=== PATIENT | male | born 1950 | race Caucasian/White ===

== ENCOUNTER → 2019-03-15 | Outpatient (CLI) | payer MEDICARE ==
[~2019-03-15] MED LIST: CARV25TA12 PO; LEVO50TA5 PO; LEVO75TA5 PO; POTA20TA89 PO; SACU1TAB PO; WARF-36 PO
[2019-03-15 15:26] LABS: INTERNATIONAL NORMALIZED RATIO 2.44 (0.93-1.1); PROTHROMBIN TIME 24.8 Seconds (9.6-11.5)
== END | disposition home or self-care (01) ==
LOC: CFH 13:05
PROVIDERS: ATTEND Internal Medicine Cardiovascular Disease
DX: I34.0 Nonrheumatic mitral (valve) insufficiency (principal); E03.9 Hypothyroidism, unspecified; E04.1 Nontoxic single thyroid nodule; I10 Essential (primary) hypertension; I42.0 Dilated cardiomyopathy; F32.9 Major depressive disorder, single episode, unspecified; F17.210 Nicotine dependence, cigarettes, uncomplicated
CPT/HCPCS: 36415; 85610

== ENCOUNTER → 2019-04-26 | Outpatient (CLI) | payer MEDICARE ==
[2019-04-26 16:34] LABS: INTERNATIONAL NORMALIZED RATIO 2.25 (0.93-1.1); PROTHROMBIN TIME 22.9 Seconds (9.6-11.5)
== END | disposition home or self-care (01) ==
LOC: CFH 13:16
PROVIDERS: ATTEND Internal Medicine Cardiovascular Disease
DX: I10 Essential (primary) hypertension (principal); E03.9 Hypothyroidism, unspecified; E04.1 Nontoxic single thyroid nodule; I34.0 Nonrheumatic mitral (valve) insufficiency; I42.0 Dilated cardiomyopathy; I42.2 Other hypertrophic cardiomyopathy; I42.8 Other cardiomyopathies; I42.9 Cardiomyopathy, unspecified; F17.210 Nicotine dependence, cigarettes, uncomplicated; F32.9 Major depressive disorder, single episode, unspecified
CPT/HCPCS: 36415; 85610

== ENCOUNTER 2019-08-12 14:16 | Emergency (ER) | payer MEDICARE ==
[~2019-08-12] VITALS: Ht 195.6 cm; Wt 87.1 kg
--- NOTE | 2019-08-12 15:39 | NUR ---
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
--- NOTE | 2019-08-12 16:48 | NUR ---
Vijaya haro in ED - 08/12/19 at 1649 by CALI PT CAME IN CO OF "MY OSTOMY HAS NOT HAD ANY POOP COME OUT OF IT IN 3-4 DAYS AND MY ABD IS VERY PAINFUL" PT HAS NO BAG ON HIS OSTOMY.
--- NOTE | 2019-08-12 16:49 | NUR ---
PT RESTING IN [facility]. UNABLE TO PALPATE OR LOCATE PULSES USING THE DOLLPER. US ORDERED
[2019-08-12 16:59] LABS: HCT (SEDRATE) 44.8 % (39.2-51.8)
[2019-08-12 17:00] LABS: ANION GAP 3 mmol/L (5-15); C-REACTIVE PROTEIN, QUANT 0.57 mg/dL (0.02-0.49); CALCIUM 8.8 mg/dL (8.5-10.1); CHLORIDE 108 mmol/L (98-107); CREATININE 0.81 mg/dL (0.7-1.3)
[2019-08-12 17:01] LABS: MEAN CORPUSCULAR HEMOGLOBIN 30.4 pg (27.5-34.5); MEAN CORPUSCULAR VOLUME 92.1 fL (81-97); MEAN PLATELET VOLUME 8.2 fL (7.4-10.4); PLATELET COUNT 173 x10^3/uL (130-400); RED BLOOD COUNT 4.94 x10^6/uL (4.38-5.82)
--- NOTE | 2019-08-12 17:34 | NUR ---
US IN WITH PT
[2019-08-12 17:35] LABS: MD YES
[2019-08-12 17:37] LABS: BASOS#(MANUAL) 0.14 x10^3/uL (0-0.1); BASOS% (MANUAL) 2 % (0-1); EOS#(MANUAL) 2.17 x10^3/uL (0.0-0.4); EOS% (MANUAL) 31 % (1-7); LYMPH#(MANUAL) 1.05 x10^3/uL (1-3.4); LYMPHS% (MANUAL) 15 % (22-44); MONOS#(MANUAL) 0.07 x10^3/uL (0.3-2.7); MONOS% (MANUAL) 1 % (2-9); REACTIVE LYMPHS # (MANUAL) 0.07 x10^3/uL (0-0); REACTIVE LYMPHS % (MANUAL) 1 % (0-0); SEGS% (MANUAL) 50 % (42-75)
[2019-08-12 17:38] LABS: <PLATELET ESTIMATE> ADEQUATE; <PLT MORPHOLOGY> NORMAL PLT MORPH; <RBC MORPHOLOGY> NORMAL
[2019-08-12 18:55] VITALS: BP 122/81
== END 2019-08-12 18:57 | disposition home or self-care (01) ==
LOC: ED 16:42
DX: M25.572 Pain in left ankle and joints of left foot (principal); I50.9 Heart failure, unspecified; I48.91 Unspecified atrial fibrillation
CPT/HCPCS: 36415; 80048; 84550; 85025; 85651; 86140; 93926; 99285

== ENCOUNTER 2019-09-03 11:52 | Emergency (ER) | payer MEDICARE ==
[~2019-09-03] VITALS: Ht 195.6 cm; Wt 86.5 kg
--- NOTE | 2019-09-03 12:14 | NUR ---
PT PRESENTED TO ED D/T BILATERAL LE PAIN, SWELLING, REDNESS X 6 WKS. PT STATES CANNOT STAND "THE PAIN" ANYMORE.
[2019-09-03] MEDS ORDERED: FURO-93 PO (12:18)
[2019-09-03] MEDS ORDERED: SACU1TAB PO (12:18)
[2019-09-03] MEDS ORDERED: LEVO25TA4 PO (12:19)
[2019-09-03] MEDS ORDERED: POTA20TA89 PO (12:19)
[2019-09-03] MEDS ORDERED: [UNRECOGNIZED DRUG - OTHER] (12:19)
[2019-09-03 12:54] LABS: MEAN CORPUSCULAR HEMOGLOBIN 30.7 pg (27.5-34.5); MEAN CORPUSCULAR HGB CONC 33.4 g/dL (33.2-36.2); MEAN CORPUSCULAR VOLUME 91.8 fL (81-97); PLATELET COUNT 198 x10^3/uL (130-400); RED CELL DISTRIBUTION WIDTH 14.7 % (9.4-14.8)
--- NOTE | 2019-09-03 13:05 | NUR ---
PT AMBULATED TO RESTROOM WITH A STEADY GAIT.
[2019-09-03 13:08] LABS: ALBUMIN 3.5 g/dL (3.4-5.0); ANION GAP 6 mmol/L (5-15); CALCIUM 8.4 mg/dL (8.5-10.1); CHLORIDE 106 mmol/L (98-107); CREATININE 0.87 mg/dL (0.7-1.3)
[2019-09-03 13:15] LABS: BASOPHILS # (AUTO) 0.03 x10^3/uL (0-0.1); BASOPHILS % (AUTO) 0 % (0-1); EOSINOPHILS # (AUTO) 2.29 x10^3/uL (0-0.4); EOSINOPHILS % (AUTO) 31 % (1-7); LYMPHOCYTES # (AUTO) 0.94 x10^3/uL (1-3.4); LYMPHOCYTES % (AUTO) 13 % (22-44); MD SCAN; MONOCYTES # (AUTO) 0.44 x10^3/uL (0.2-0.8); MONOCYTES % (AUTO) 6 % (2-9); NEUTROPHILS # (AUTO) 3.73 x10^3/uL (1.8-6.8); NEUTROPHILS % (AUTO) 50 % (42-75)
--- NOTE | 2019-09-03 13:29 | NUR ---
US AT BEDSIDE.
--- NOTE | 2019-09-03 13:54 | NUR ---
PT RESTING ON [facility]ATH[facility]. REPORT TO JC ARRIETA TO ASSUME PRIMARY CARE PT.
--- NOTE | 2019-09-03 14:02 | NUR ---
REPORT FROM MARTÍN GREENE. PATIENT IN BED AWAITING ULTRASOUND.
[2019-09-03 14:17] VITALS: BP 122/78
[2019-09-03] MEDS ORDERED: OXYcodone/APAP 5/325MG TABLET ONE (14:20)
[2019-09-03] MEDS ORDERED: OXYcodone/APAP 5/325MG TABLET PO ONE (14:30)
== END 2019-09-03 14:28 | disposition home or self-care (01) ==
LOC: ED 12:25
DX: M79.662 Pain in left lower leg (principal); M79.661 Pain in right lower leg; I48.91 Unspecified atrial fibrillation; I45.10 Unspecified right bundle-branch block
CPT/HCPCS: 36415; 71045; 80048; 82040; 85025; 93005; 93970; 99285

== ENCOUNTER 2019-09-19 12:08 | Inpatient (IN) | payer MEDICARE ==
[~2019-09-19] VITALS: Ht 195.6 cm; Wt 84.0 kg
[~2019-09-19 12:08] MED LIST changes: +FURO-93 PO; +LEVO25TA4 PO; +[UNRECOGNIZED DRUG - OTHER]
[2019-09-19] MEDS ORDERED: CARV-39 PO (13:48)
--- NOTE | 2019-09-19 14:09 | NUR ---
THIS IS A 69 YO M W/ C/O BILAT LWR EXTREMITY/UPR EXTREMITY WEAKNESS X3 DAYS. PT HAS RT MIDDLE FINGER AND LET 2ND TOE REDNESS AND SWELLING. PT REPORTS HE HAS BEEN UNABLE TO WALK. PT CONNECTED TO MONITORING, FOUND TO BE IN AFIB, EKG DONE AND GIVEN TO . OTHER VS WDL. PIV STARTED, LABS DRAWN. IN ROOM FOR ED EVAL.
[2019-09-19] MEDS ORDERED: SODIUM CHLORIDE 0.9% 1,000 ML IV ONE (14:13)
[2019-09-19] MEDS ORDERED: DILTIAZEM 125 MG in SODIUM CHLORIDE 0.9% 100 ML IV ONE (14:13)
[2019-09-19] MEDS ORDERED: DILTIAZEM 5 MG/ML, 5ML ONE (14:20)
[2019-09-19] MEDS ORDERED: DILTIAZEM 5 MG/ML, 5ML IV ONE (14:30)
[2019-09-19] MEDS ORDERED: SODIUM CHLORIDE FLUSH 10ML SYR IVF ONE (14:30)
--- NOTE | 2019-09-19 14:35 | NUR ---
MED ALMA FROM PHARMACY.
[2019-09-19 14:54] LABS: BASOPHILS # (AUTO) 0.02 x10^3/uL (0-0.1); BASOPHILS % (AUTO) 0 % (0-1); EOSINOPHILS # (AUTO) 0.27 x10^3/uL (0-0.4); EOSINOPHILS % (AUTO) 3 % (1-7); LYMPHOCYTES # (AUTO) 0.53 x10^3/uL (1-3.4); LYMPHOCYTES % (AUTO) 5 % (22-44); MD NO; MEAN CORPUSCULAR HEMOGLOBIN 30.2 pg (27.5-34.5); MEAN CORPUSCULAR HGB CONC 33.7 g/dL (33.2-36.2); MEAN CORPUSCULAR VOLUME 89.7 fL (81-97); MEAN PLATELET VOLUME 8.3 fL (7.4-10.4); MONOCYTES # (AUTO) 0.56 x10^3/uL (0.2-0.8); MONOCYTES % (AUTO) 5 % (2-9); NEUTROPHILS # (AUTO) 9.45 x10^3/uL (1.8-6.8); NEUTROPHILS % (AUTO) 87 % (42-75); PLATELET COUNT 203 x10^3/uL (130-400)
[2019-09-19 15:03] LABS: ANION GAP 10 mmol/L (5-15); CALCIUM 8.5 mg/dL (8.5-10.1); CHLORIDE 101 mmol/L (98-107)
[2019-09-19 15:06] LABS: ALANINE AMINOTRANSFERASE 16 U/L (12-78); ALKALINE PHOSPHATASE 108 U/L (45-117); BILIRUBIN,TOTAL 1.8 mg/dL (0.2-1.0); CREATINE KINASE, TOTAL 87 U/L (39-308); CREATININE 0.85 mg/dL (0.7-1.3); HCT (SEDRATE) 40.9 % (39.2-51.8); T4 (THYROXINE) 7.8 mcg/dL (4.5-12.1); TOTAL PROTEIN 7.2 g/dL (6.4-8.2); TROPONIN I < 0.015 ng/mL (0.000-0.045)
[2019-09-19] MEDS ORDERED: ONDANSETRON 2MG/ML, 2ML ONE (15:07)
[2019-09-19] MEDS ORDERED: HYDROmorphone 1 MG/ML, 1ML INJ ONE (15:07)
[2019-09-19] MEDS ORDERED: HYDROmorphone 2 MG/ML, 1ML IVPush PRN (15:30)
[2019-09-19] MEDS ORDERED: ONDANSETRON 2MG/ML, 2ML IVPush ONE (15:30)
[2019-09-19 15:32] LABS: INTERNATIONAL NORMALIZED RATIO 3.1 (0.93-1.1); PROTHROMBIN TIME 33.2 Seconds (9.6-11.5)
--- NOTE | 2019-09-19 15:37 | NUR ---
PT RESTING ON GURNEY W/ CALL LIGHT IN REACH AND FAMILY AT BEDSIDE. AIMEE TAVAREZ. AWAITING RESULTS.
--- NOTE | 2019-09-19 15:49 | NUR ---
MED REC DONE.
--- NOTE | 2019-09-19 16:16 | NUR ---
BREAK RN: ADMITTING MD AT BEDSIDE FOR EVAL AT THIS TIME. PT APPEARS TO BE RESTING COMFORTABLY ON GURNEY. NO ACUTE DISTRESS NOTED. PT AO X 4. SKIN WARM AND DRY. RESP EVEN AND UNLABORED. PT A-FIB 100'S ON FOREST ENGINEER. CALL LIGHT WITHIN REACH.
[2019-09-19] MEDS ORDERED: SODIUM CHLORIDE 0.9% 1,000 ML IV SCH (16:18)
[2019-09-19] MEDS ORDERED: SODIUM CHLORIDE FLUSH 10ML SYR IVF PRN (16:30)
[2019-09-19] MEDS ORDERED: ONDANSETRON 2MG/ML, 2ML IVPush PRN (16:30)
[2019-09-19] MEDS ORDERED: LABETALOL 5MG/ML, 20ML IVPush PRN (16:30)
[2019-09-19] MEDS ORDERED: PROMETHAZINE 25 MG/ML, 1ML IM PRN (16:30)
[2019-09-19] MEDS ORDERED: morphine SULFATE 10 MG/ML, 1ML IVPush PRN (16:30)
[2019-09-19] MEDS ORDERED: hydrALAzine 20 MG/ML, 1ML IVPush PRN (16:30)
--- NOTE | 2019-09-19 17:07 | NUR ---
REPORT GIVEN TO TIM GREENE. PT IS READY FOR TRANSPORT AT THIS TIME.
[2019-09-19 18:06] VITALS: BP 108/62
[2019-09-19] MEDS ORDERED: WARFARIN 2 MG TABLET PO-COUM ONE (20:00)
[2019-09-19] MEDS: HYDROcodone/APAP 5/325 TABLET PO PRN (20:10)
[2019-09-19 20:34] LABS: TROPONIN I < 0.015 ng/mL (0.000-0.045)
[2019-09-19] MEDS ORDERED: CARVEDILOL 25 MG TABLET PO SCH (21:00)
[2019-09-20 00:02] LABS: MICROSCOPIC INDICATED
[2019-09-20 01:56] VITALS: BP 103/61
[2019-09-20] MEDS ORDERED: DILTIAZEM 125 MG in SODIUM CHLORIDE 0.9% 100 ML IV SCH (02:00)
[2019-09-20 03:20] LABS: BASOPHILS # (AUTO) 0.02 x10^3/uL (0-0.1); BASOPHILS % (AUTO) 0 % (0-1); EOSINOPHILS # (AUTO) 0.38 x10^3/uL (0-0.4); EOSINOPHILS % (AUTO) 5 % (1-7); LYMPHOCYTES # (AUTO) 0.62 x10^3/uL (1-3.4); LYMPHOCYTES % (AUTO) 8 % (22-44); MD NO; MEAN CORPUSCULAR HEMOGLOBIN 30.2 pg (27.5-34.5); MEAN CORPUSCULAR HGB CONC 33.6 g/dL (33.2-36.2); MEAN CORPUSCULAR VOLUME 89.8 fL (81-97); MEAN PLATELET VOLUME 7.4 fL (7.4-10.4); MONOCYTES % (AUTO) 7 % (2-9); NEUTROPHILS # (AUTO) 6.17 x10^3/uL (1.8-6.8); NEUTROPHILS % (AUTO) 80 % (42-75); PLATELET COUNT 152 x10^3/uL (130-400); RED BLOOD COUNT 3.63 x10^6/uL (4.38-5.82)
[2019-09-20 03:23] LABS: INTERNATIONAL NORMALIZED RATIO 3.21 (0.93-1.1); PROTHROMBIN TIME 34.4 Seconds (9.6-11.5)
[2019-09-20 03:26] LABS: ALANINE AMINOTRANSFERASE 13 U/L (12-78); ALBUMIN 2.3 g/dL (3.4-5.0); ANION GAP 9 mmol/L (5-15); CALCIUM 7.7 mg/dL (8.5-10.1); CHLORIDE 105 mmol/L (98-107); CREATININE 0.66 mg/dL (0.7-1.3)
[2019-09-20 03:31] LABS: ALKALINE PHOSPHATASE 84 U/L (45-117); BILIRUBIN,TOTAL 0.9 mg/dL (0.2-1.0); TOTAL PROTEIN 5.7 g/dL (6.4-8.2); TROPONIN I < 0.015 ng/mL (0.000-0.045)
[2019-09-20 06:43] VITALS: BP 103/59
[2019-09-20] MEDS: HYDROcodone/APAP 5/325 TABLET PO PRN ×2 (08:29→13:37)
[2019-09-20] MEDS ORDERED: FUROSEMIDE 20 MG TABLET PO SCH (09:00)
[2019-09-20] MEDS ORDERED: IBUPROFEN 200 MG TABLET PO ONE (10:00)
[2019-09-20] MEDS ORDERED: methylPREDNISolone SOD SUCC 125 MG/2 ML IVPush SCH (12:30)
[2019-09-20] MEDS ORDERED: IBUPROFEN 200 MG TABLET PO PRN (12:30)
[2019-09-20 12:57] VITALS: BP 98/57
[2019-09-20] MEDS: PANTOPRAZOLE 20MG TABLET PO SCH (16:45)
[2019-09-20] MEDS: CARVEDILOL 25 MG TABLET PO SCH ×2 (16:45→18:55)
[2019-09-20] MEDS ORDERED: POTASSIUM CHLORIDE 20 MEQ TAB.ER.PRT PO SCH (17:00)
[2019-09-20] MEDS ORDERED: WARFARIN 3 MG TABLET PO-COUM ONE (18:00)
[2019-09-20 20:15] VITALS: BP 93/53
[2019-09-20] MEDS: methylPREDNISolone SOD SUCC 125 MG/2 ML IVPush SCH (20:19)
[2019-09-21 03:03] VITALS: BP 107/63
[2019-09-21] MEDS: methylPREDNISolone SOD SUCC 125 MG/2 ML IVPush SCH ×4 (03:05→20:38)
[2019-09-21] MEDS: HYDROcodone/APAP 5/325 TABLET PO PRN ×2 (03:06→15:27)
[2019-09-21] MEDS: PANTOPRAZOLE 20MG TABLET PO SCH ×2 (05:24→15:24)
[2019-09-21 06:03] LABS: HCT (SEDRATE) 34.5 % (39.2-51.8)
[2019-09-21 06:08] LABS: INTERNATIONAL NORMALIZED RATIO 2.38 (0.93-1.1); PROTHROMBIN TIME 25.4 Seconds (9.6-11.5)
[2019-09-21 06:09] LABS: MEAN CORPUSCULAR HEMOGLOBIN 30.5 pg (27.5-34.5); MEAN CORPUSCULAR HGB CONC 33.2 g/dL (33.2-36.2); MEAN CORPUSCULAR VOLUME 91.7 fL (81-97); MEAN PLATELET VOLUME 7.8 fL (7.4-10.4); PLATELET COUNT 169 x10^3/uL (130-400); RED BLOOD COUNT 3.77 x10^6/uL (4.38-5.82); RED CELL DISTRIBUTION WIDTH 13.7 % (9.4-14.8)
[2019-09-21 06:11] LABS: ANION GAP 9 mmol/L (5-15); CHLORIDE 106 mmol/L (98-107); CREATININE 0.56 mg/dL (0.7-1.3)
[2019-09-21 06:12] LABS: ALANINE AMINOTRANSFERASE 17 U/L (12-78); ALBUMIN 2.3 g/dL (3.4-5.0)
[2019-09-21 06:18] LABS: ALKALINE PHOSPHATASE 99 U/L (45-117); BILIRUBIN,TOTAL 0.5 mg/dL (0.2-1.0); TOTAL PROTEIN 6.2 g/dL (6.4-8.2)
[2019-09-21 07:08] LABS: BASOPHILS % (AUTO) 0 % (0-1); EOSINOPHILS % (AUTO) 0 % (1-7); LYMPHOCYTES # (AUTO) 0.24 x10^3/uL (1-3.4); LYMPHOCYTES % (AUTO) 4 % (22-44); MD SCAN; MONOCYTES # (AUTO) 0.07 x10^3/uL (0.2-0.8); MONOCYTES % (AUTO) 1 % (2-9); NEUTROPHILS # (AUTO) 5.47 x10^3/uL (1.8-6.8); NEUTROPHILS % (AUTO) 95 % (42-75)
[2019-09-21 07:28] VITALS: BP 126/58
[2019-09-21] MEDS ORDERED: METOPROLOL 1 MG/ML, 5ML ONE (07:45)
[2019-09-21] MEDS ORDERED: METOPROLOL 1 MG/ML, 5ML IVPush ONE (08:00)
[2019-09-21] MEDS ORDERED: DIGOXIN 0.25 MG/ML, 2ML IVPush ONE (09:00)
[2019-09-21] MEDS ORDERED: LEVOTHYROXINE 25 MCG TABLET PO SCH (09:00)
[2019-09-21] MEDS: DILTIAZEM 125 MG in SODIUM CHLORIDE 0.9% 100 ML IV SCH ×2 (09:03→20:38)
[2019-09-21] MEDS ORDERED: MAGNESIUM CITRATE 300ML ORAL SOL PO ONE ×2 (09:30→17:30)
[2019-09-21 13:44] VITALS: BP 108/66
[2019-09-21] MEDS: CARVEDILOL 25 MG TABLET PO SCH (17:13)
[2019-09-21] MEDS ORDERED: WARFARIN 3 MG TABLET PO-COUM ONE (18:00)
[2019-09-21 19:52] VITALS: BP 98/64
[2019-09-21 20:50] VITALS: BP 111/73
[2019-09-22 01:30] VITALS: BP 106/59
[2019-09-22] MEDS: HYDROcodone/APAP 5/325 TABLET PO PRN (03:54)
[2019-09-22] MEDS: methylPREDNISolone SOD SUCC 125 MG/2 ML IVPush SCH ×4 (03:54→20:56)
[2019-09-22 05:20] LABS: HCT (SEDRATE) 33.9 % (39.2-51.8)
[2019-09-22 05:21] LABS: BASOPHILS % (AUTO) 0 % (0-1); EOSINOPHILS # (AUTO) 0.04 x10^3/uL (0-0.4); EOSINOPHILS % (AUTO) 1 % (1-7); LYMPHOCYTES # (AUTO) 0.35 x10^3/uL (1-3.4); LYMPHOCYTES % (AUTO) 5 % (22-44); MD NO; MEAN CORPUSCULAR HGB CONC 33.5 g/dL (33.2-36.2); MEAN CORPUSCULAR VOLUME 89.4 fL (81-97); MEAN PLATELET VOLUME 8.3 fL (7.4-10.4); MONOCYTES % (AUTO) 3 % (2-9); NEUTROPHILS # (AUTO) 6.53 x10^3/uL (1.8-6.8); NEUTROPHILS % (AUTO) 92 % (42-75); PLATELET COUNT 187 x10^3/uL (130-400); RED BLOOD COUNT 3.74 x10^6/uL (4.38-5.82); RED CELL DISTRIBUTION WIDTH 14.1 % (9.4-14.8)
[2019-09-22 05:30] LABS: ALBUMIN 2.4 g/dL (3.4-5.0); ANION GAP 11 mmol/L (5-15); CHLORIDE 103 mmol/L (98-107)
[2019-09-22 05:38] LABS: INTERNATIONAL NORMALIZED RATIO 3.04 (0.93-1.1); PROTHROMBIN TIME 32.6 Seconds (9.6-11.5)
[2019-09-22 05:41] LABS: ALANINE AMINOTRANSFERASE 21 U/L (12-78); ALKALINE PHOSPHATASE 92 U/L (45-117); BILIRUBIN,TOTAL 0.4 mg/dL (0.2-1.0); CREATININE 0.78 mg/dL (0.7-1.3)
[2019-09-22 06:35] VITALS: BP 125/75
[2019-09-22] MEDS: CARVEDILOL 25 MG TABLET PO SCH ×2 (06:36→16:06)
[2019-09-22] MEDS: PANTOPRAZOLE 20MG TABLET PO SCH (06:37)
[2019-09-22 07:25] VITALS: BP 114/74
[2019-09-22] MEDS ORDERED: DILTIAZEM 125 MG in SODIUM CHLORIDE 0.9% 100 ML IV SCH (08:00)
[2019-09-22] MEDS ORDERED: OXYcodone IR 5MG TABLET PO PRN ×2 (12:30)
[2019-09-22 13:15] VITALS: BP 112/66
[2019-09-22] MEDS: PANTOPRAZOLE 40MG TABLET PO SCH (16:05)
[2019-09-22] MEDS ORDERED: WARFARIN 2 MG TABLET PO-COUM ONE (18:00)
[2019-09-22 20:51] VITALS: BP 110/66
[2019-09-22] MEDS: DOCUSATE 100 MG CAPSULE PO SCH (20:57)
[2019-09-22] MEDS: MAGNESIUM HYDROXIDE 8%, 30ML UDC PO SCH (20:57)
[2019-09-23 00:50] VITALS: BP 122/79
[2019-09-23] MEDS: methylPREDNISolone SOD SUCC 125 MG/2 ML IVPush SCH ×4 (04:02→20:40)
[2019-09-23 05:05] VITALS: BP 123/75
[2019-09-23] MEDS: PANTOPRAZOLE 40MG TABLET PO SCH ×2 (05:06→17:08)
[2019-09-23] MEDS: CARVEDILOL 25 MG TABLET PO SCH ×2 (05:06→17:08)
[2019-09-23] MEDS: LEVOTHYROXINE 50 MCG TABLET PO SCH (05:06)
[2019-09-23 05:46] LABS: INTERNATIONAL NORMALIZED RATIO 2.63 (0.93-1.1); PROTHROMBIN TIME 28.1 Seconds (9.6-11.5)
[2019-09-23 06:04] LABS: CHLORIDE 103 mmol/L (98-107)
[2019-09-23 06:09] LABS: ANION GAP 8 mmol/L (5-15); CALCIUM 7.8 mg/dL (8.5-10.1); CREATININE 0.75 mg/dL (0.7-1.3)
[2019-09-23 07:20] VITALS: BP 109/71
[2019-09-23] MEDS: DOCUSATE 100 MG CAPSULE PO SCH ×2 (09:12→20:41)
[2019-09-23] MEDS ORDERED: LIDODERM 5% PATCH TD SCH (10:00)
[2019-09-23] MEDS ORDERED: OXYcodone IR 5MG TABLET PO PRN (12:30)
[2019-09-23 13:20] VITALS: BP 124/74
[2019-09-23] MEDS ORDERED: LIDODERM 5% PATCH TD PRN (14:30)
[2019-09-23] MEDS ORDERED: WARFARIN 5 MG TABLET PO-COUM ONE (18:00)
[2019-09-23 20:33] VITALS: BP 115/64
[2019-09-23] MEDS: OXYcodone IR 5MG TABLET PO PRN (20:40)
[2019-09-23] MEDS: MAGNESIUM HYDROXIDE 8%, 30ML UDC PO SCH (20:40)
[2019-09-23] MEDS: LIDODERM REMOVE PATCH NOTE XX SCH (20:41)
[2019-09-24 02:38] VITALS: BP 125/76
[2019-09-24] MEDS: methylPREDNISolone SOD SUCC 125 MG/2 ML IVPush SCH ×2 (02:56→09:07)
[2019-09-24] MEDS: CARVEDILOL 25 MG TABLET PO SCH ×2 (06:22→18:06)
[2019-09-24] MEDS: PANTOPRAZOLE 40MG TABLET PO SCH ×2 (06:22→16:00)
[2019-09-24] MEDS: LEVOTHYROXINE 88 MCG TABLET PO SCH (06:25)
[2019-09-24 06:26] LABS: INTERNATIONAL NORMALIZED RATIO 2.82 (0.93-1.1); PROTHROMBIN TIME 30.2 Seconds (9.6-11.5)
[2019-09-24 07:10] VITALS: BP 117/68
[2019-09-24] MEDS: DOCUSATE 100 MG CAPSULE PO SCH ×2 (09:07→20:36)
[2019-09-24] MEDS ORDERED: PANT40TA5 PO (12:33)
[2019-09-24] MEDS ORDERED: LEVO50TA PO (12:33)
[2019-09-24] MEDS ORDERED: OXYC5TAB3 PO (12:33)
[2019-09-24] MEDS ORDERED: DOCU100C33 PO (12:33)
[2019-09-24] MEDS ORDERED: LEVO88TA2 PO (12:33)
[2019-09-24] MEDS ORDERED: PRED20TA PO ×2 (12:41)
[2019-09-24] MEDS: OXYcodone IR 5MG TABLET PO PRN ×2 (12:51→20:38)
[2019-09-24 14:10] VITALS: BP 113/77
[2019-09-24] MEDS ORDERED: WARFARIN 2 MG TABLET PO-COUM ONE (18:00)
[2019-09-24] MEDS: LIDODERM REMOVE PATCH NOTE XX SCH (20:36)
[2019-09-24] MEDS: MAGNESIUM HYDROXIDE 8%, 30ML UDC PO SCH (20:37)
[2019-09-24 20:41] VITALS: BP 136/84
[2019-09-25] MEDS: OXYcodone IR 5MG TABLET PO PRN ×3 (00:45→23:03)
[2019-09-25 00:46] VITALS: BP 124/79
[2019-09-25 04:38] LABS: INTERNATIONAL NORMALIZED RATIO 3.03 (0.93-1.1); PROTHROMBIN TIME 32.5 Seconds (9.6-11.5)
[2019-09-25] MEDS: CARVEDILOL 25 MG TABLET PO SCH ×2 (05:33→17:31)
[2019-09-25] MEDS: LEVOTHYROXINE 50 MCG TABLET PO SCH ×2 (05:33→08:37)
[2019-09-25] MEDS: PANTOPRAZOLE 40MG TABLET PO SCH ×2 (05:33→17:31)
[2019-09-25 07:20] VITALS: BP 96/51
[2019-09-25] MEDS: DOCUSATE 100 MG CAPSULE PO SCH ×2 (08:34→20:40)
[2019-09-25 09:25] VITALS: BP 103/61
[2019-09-25 14:40] VITALS: BP 106/66
[2019-09-25] MEDS: methylPREDNISolone SOD SUCC 125 MG/2 ML IVPush SCH ×2 (14:45→20:40)
[2019-09-25 19:41] VITALS: BP 107/65
[2019-09-25] MEDS: MAGNESIUM HYDROXIDE 8%, 30ML UDC PO SCH (20:40)
[2019-09-25] MEDS: LIDODERM REMOVE PATCH NOTE XX SCH (22:00)
[2019-09-26 01:44] VITALS: BP 99/58
[2019-09-26] MEDS: methylPREDNISolone SOD SUCC 125 MG/2 ML IVPush SCH ×4 (02:36→20:08)
[2019-09-26] MEDS: CARVEDILOL 25 MG TABLET PO SCH ×2 (05:40→17:09)
[2019-09-26] MEDS: PANTOPRAZOLE 40MG TABLET PO SCH ×2 (05:40→15:54)
[2019-09-26] MEDS: LEVOTHYROXINE 88 MCG TABLET PO SCH ×2 (05:43→08:15)
[2019-09-26 05:59] LABS: INTERNATIONAL NORMALIZED RATIO 2.87 (0.93-1.1); PROTHROMBIN TIME 30.8 Seconds (9.6-11.5)
[2019-09-26 07:06] VITALS: BP 113/63
[2019-09-26] MEDS: DOCUSATE 100 MG CAPSULE PO SCH ×2 (08:15→20:08)
[2019-09-26 12:34] VITALS: BP 99/62
[2019-09-26 19:24] VITALS: BP 130/79
[2019-09-26] MEDS: MAGNESIUM HYDROXIDE 8%, 30ML UDC PO SCH (20:08)
[2019-09-26] MEDS: OXYcodone IR 5MG TABLET PO PRN (20:09)
[2019-09-26] MEDS: LIDODERM REMOVE PATCH NOTE XX SCH (20:15)
[2019-09-26 23:29] VITALS: BP 111/71
[2019-09-27] MEDS: methylPREDNISolone SOD SUCC 125 MG/2 ML IVPush SCH ×2 (02:19→08:20)
[2019-09-27] MEDS: CARVEDILOL 25 MG TABLET PO SCH ×2 (05:42→17:47)
[2019-09-27] MEDS: PANTOPRAZOLE 40MG TABLET PO SCH ×2 (05:42→15:59)
[2019-09-27 06:05] LABS: INTERNATIONAL NORMALIZED RATIO 2.08 (0.93-1.1); PROTHROMBIN TIME 22.2 Seconds (9.6-11.5)
[2019-09-27 06:09] LABS: ANION GAP 6 mmol/L (5-15); CALCIUM 7.8 mg/dL (8.5-10.1); CHLORIDE 104 mmol/L (98-107); CREATININE 0.59 mg/dL (0.7-1.3); MEAN CORPUSCULAR HEMOGLOBIN 30.3 pg (27.5-34.5); MEAN CORPUSCULAR HGB CONC 33.5 g/dL (33.2-36.2); MEAN CORPUSCULAR VOLUME 90.2 fL (81-97); MEAN PLATELET VOLUME 7.9 fL (7.4-10.4); PLATELET COUNT 171 x10^3/uL (130-400); RED BLOOD COUNT 3.79 x10^6/uL (4.38-5.82); RED CELL DISTRIBUTION WIDTH 14.3 % (9.4-14.8)
[2019-09-27 06:38] LABS: BASOPHILS % (AUTO) 0 % (0-1); EOSINOPHILS % (AUTO) 0 % (1-7); LYMPHOCYTES # (AUTO) 0.19 x10^3/uL (1-3.4); LYMPHOCYTES % (AUTO) 2 % (22-44); MD SCAN; MONOCYTES # (AUTO) 0.23 x10^3/uL (0.2-0.8); MONOCYTES % (AUTO) 2 % (2-9); NEUTROPHILS # (AUTO) 9.64 x10^3/uL (1.8-6.8); NEUTROPHILS % (AUTO) 96 % (42-75)
[2019-09-27 06:46] LABS: HCT (SEDRATE) 34.2 % (39.2-51.8)
[2019-09-27 07:49] VITALS: BP 113/68
[2019-09-27] MEDS: DOCUSATE 100 MG CAPSULE PO SCH ×2 (08:20→20:37)
[2019-09-27] MEDS: LEVOTHYROXINE 50 MCG TABLET PO SCH (08:20)
[2019-09-27] MEDS: ENOXAPARIN 80 MG/0.8 ML SQ SCH ×2 (10:29→22:29)
[2019-09-27 15:15] VITALS: BP 103/68
[2019-09-27] MEDS: methylPREDNISolone SOD SUCC 40 MG/ML IVPush SCH (20:37)
[2019-09-27] MEDS: OXYcodone IR 5MG TABLET PO PRN (20:40)
[2019-09-27] MEDS: MAGNESIUM HYDROXIDE 8%, 30ML UDC PO SCH (20:40)
[2019-09-27 20:48] VITALS: BP 103/52
[2019-09-27] MEDS: LIDODERM REMOVE PATCH NOTE XX SCH (22:00)
[2019-09-27 22:56] VITALS: BP 133/83
[2019-09-28 05:11] LABS: INTERNATIONAL NORMALIZED RATIO 1.8 (0.93-1.1); PROTHROMBIN TIME 19.2 Seconds (9.6-11.5)
[2019-09-28] MEDS: PANTOPRAZOLE 40MG TABLET PO SCH ×2 (06:29→16:42)
[2019-09-28] MEDS: CARVEDILOL 25 MG TABLET PO SCH ×2 (06:30→16:44)
[2019-09-28 09:00] VITALS: BP 101/67
[2019-09-28] MEDS: DOCUSATE 100 MG CAPSULE PO SCH ×2 (09:00→20:24)
[2019-09-28] MEDS: LEVOTHYROXINE 88 MCG TABLET PO SCH (09:05)
[2019-09-28] MEDS: ENOXAPARIN 80 MG/0.8 ML SQ SCH ×2 (09:06→22:31)
[2019-09-28] MEDS: methylPREDNISolone SOD SUCC 40 MG/ML IVPush SCH ×2 (09:06→20:24)
[2019-09-28 14:53] VITALS: BP 99/68
[2019-09-28] MEDS: OXYcodone IR 5MG TABLET PO PRN ×2 (15:03→20:25)
[2019-09-28 19:09] VITALS: BP 117/75
[2019-09-28] MEDS: ACETAMINOPHEN 325 MG TABLET PO PRN (20:24)
[2019-09-28] MEDS: MAGNESIUM HYDROXIDE 8%, 30ML UDC PO SCH (20:24)
[2019-09-28] MEDS: LIDODERM REMOVE PATCH NOTE XX SCH (21:56)
[2019-09-29 00:48] VITALS: BP 109/73
[2019-09-29 05:11] VITALS: BP 106/56
[2019-09-29 05:12] LABS: INTERNATIONAL NORMALIZED RATIO 1.35 (0.93-1.1); PROTHROMBIN TIME 14.4 Seconds (9.6-11.5)
[2019-09-29] MEDS: CARVEDILOL 25 MG TABLET PO SCH ×2 (05:12→18:22)
[2019-09-29] MEDS: PANTOPRAZOLE 40MG TABLET PO SCH ×2 (05:13→16:12)
[2019-09-29 08:20] VITALS: BP 99/61
[2019-09-29] MEDS: methylPREDNISolone SOD SUCC 40 MG/ML IVPush SCH ×2 (09:03→20:30)
[2019-09-29] MEDS: LEVOTHYROXINE 50 MCG TABLET PO SCH (09:04)
[2019-09-29] MEDS: DOCUSATE 100 MG CAPSULE PO SCH ×2 (09:04→20:29)
[2019-09-29] MEDS: ENOXAPARIN 80 MG/0.8 ML SQ SCH (11:13)
[2019-09-29] MEDS: ACETAMINOPHEN 325 MG TABLET PO PRN ×2 (11:19→23:46)
[2019-09-29] MEDS: OXYcodone IR 5MG TABLET PO PRN ×2 (11:20→23:49)
[2019-09-29 12:53] VITALS: BP 108/70
[2019-09-29 19:00] VITALS: BP 104/74
[2019-09-29] MEDS: MAGNESIUM HYDROXIDE 8%, 30ML UDC PO SCH (20:29)
[2019-09-29] MEDS: LIDODERM REMOVE PATCH NOTE XX SCH (20:31)
[2019-09-30 01:26] VITALS: BP 111/70
[2019-09-30 05:36] LABS: INTERNATIONAL NORMALIZED RATIO 1.13 (0.93-1.1)
[2019-09-30] MEDS: CARVEDILOL 25 MG TABLET PO SCH (06:06)
[2019-09-30] MEDS: PANTOPRAZOLE 40MG TABLET PO SCH ×2 (06:07→16:22)
[2019-09-30 06:34] VITALS: BP 115/74
[2019-09-30] MEDS ORDERED: methylPREDNISolone SOD SUCC 40 MG/ML IVPush SCH (09:00)
[2019-09-30] MEDS: OXYcodone IR 5MG TABLET PO PRN ×2 (09:03→15:07)
[2019-09-30] MEDS: DOCUSATE 100 MG CAPSULE PO SCH (09:04)
[2019-09-30] MEDS: LEVOTHYROXINE 88 MCG TABLET PO SCH (09:04)
[2019-09-30] MEDS ORDERED: MIDAZOLAM 1 MG/ML, 2ML ONE (10:02)
[2019-09-30] MEDS ORDERED: FENTANYL PF 100 MCG/2ML ONE (10:02)
[2019-09-30] MEDS ORDERED: BUPIVACAINE/PF-EPI 0.5% 1:200K ONE (11:07)
[2019-09-30] MEDS ORDERED: CHLORHEXIDINE 15 ML UDC MM STA (11:38)
[2019-09-30] MEDS ORDERED: CHLORHEXIDINE 15 ML UDC ONE (11:48)
[2019-09-30] MEDS ORDERED: CEFAZOLIN 1,000 MG ONE (12:39)
[2019-09-30] MEDS ORDERED: PROPOFOL 10 MG/ML, 20ML ONE (12:39)
[2019-09-30] MEDS ORDERED: FENTANYL PF 100 MCG/2ML IV PRN (13:00)
[2019-09-30] MEDS ORDERED: morphine SULFATE 10 MG/ML, 1ML IVPush PRN (13:00)
[2019-09-30] MEDS ORDERED: HYDROcodone/APAP 7.5-325MG/15ML UDC PO PRN (13:00)
[2019-09-30] MEDS ORDERED: PROMETHAZINE 25 MG/ML, 1ML IVPush PRN (13:00)
[2019-09-30 13:43] VITALS: BP 114/77
[2019-09-30] MEDS ORDERED: OXYC5TAB3 PO ×2 (14:43→16:13)
[2019-09-30] MEDS ORDERED: PRED10TA PO (14:43)
[2019-09-30] MEDS ORDERED: OXYC10TA47 PO (14:43)
[2019-10-01 15:11] LABS: ANA SCREEN NEGATIVE (Negative)
== END 2019-09-30 16:47 | disposition home or self-care (01) | DRG 607 ==
LOC: ED 14:26 → EDIP 16:18 → 5SO 18:13 → DCLOUNGE 09-30 16:32
PROVIDERS: ADMIT Hospitalist; ATTEND Internal Medicine
PROC: 0JBL0ZX Excision of Right Upper Leg Subcutaneous Tissue and Fascia, Open Approach, Diagnostic (ICD-10-PCS; principal; 2019-09-30 15:00)
DX: R22.41 Localized swelling, mass and lump, right lower limb (principal); E87.1 Hypo-osmolality and hyponatremia; I42.8 Other cardiomyopathies; I48.20 Chronic atrial fibrillation, unspecified; D68.59 Other primary thrombophilia; M06.9 Rheumatoid arthritis, unspecified; M19.90 Unspecified osteoarthritis, unspecified site; E87.6 Hypokalemia; I11.0 Hypertensive heart disease with heart failure; E03.9 Hypothyroidism, unspecified; E86.0 Dehydration; I34.0 Nonrheumatic mitral (valve) insufficiency; I50.9 Heart failure, unspecified; K59.03 Drug induced constipation; T40.605A Adverse effect of unspecified narcotics, initial encounter; Z60.2 Problems related to living alone; F12.90 Cannabis use, unspecified, uncomplicated; Z20.828 Contact with and (suspected) exposure to other viral communicable diseases; I77.819 Aortic ectasia, unspecified site; Z91.81 History of falling; Z87.891 Personal history of nicotine dependence; Z79.01 Long term (current) use of anticoagulants; Z79.899 Other long term (current) drug therapy
CPT/HCPCS: 36415; 71045; 80048; 80053; 81001; 82164; 82550; 82607; 83735; 83880; 84436; 84443; 84484; 85025; 85610; 85651; 85730; 86038; 86140; 86200; 86235; 86256; 86431; 87040; 87070; 87075; 87086; 87205; 88305; 88312; 88313; 93306; 96361; 96365; 96366; 96375; 99285; G0378; J0690; J1170; J1650; J2250; J2405; J2704; J3010; 86226; J1160; J2920; J2930; J7030; J7512; U0001-CS